=== PATIENT | female | born 1970 | race Caucasian/White ===

== ENCOUNTER → 2020-04-21 16:00 | Outpatient (BNVA) | payer BC, SELFPAY | PROVIDERS: Family Provider General Practice; PCP Nurse Practitioner; Visit Provider Obstetrics & Gynecology | DX: Z12.4 Encounter for screening for malignant neoplasm of cervix (principal); N95.1 Menopausal and female climacteric states | CPT/HCPCS: 88175 ==

== ENCOUNTER 2021-07-23 08:27 | Emergency (ER) | payer OTHER, SELFPAY ==
[2021-07-23 08:41] VITALS: BP 116/63; PULSE 58; RESP 18; TEMP 36.5; O2SAT 100; BMI 24.7
--- NOTE | 2021-07-23 08:58 | CT_ITS ---
WS: [id number] CT ABDOMEN AND PELVIS NONCONTRAST HISTORY: left flank pain TECHNIQUE: Imaging performed through the abdomen and pelvis. Coronal and sagittal reformats are submi tted. All CT scans at [facility] use at least one of these dose optimization techniques: auto mated exposure control; mA and/or kV adjustment per patient size (includes targeted exams where dose is matched to clinical indication); or iterative reconstruction. DLP: 947.9 mGy.cm COMPARISON: None available. Lower thorax: Lung bases are clear. Visualized heart is normal. No hiatal hernia. Liver: Normal size liver. No mass or bile duct dilatation. Gallbladder: Normal gallbladder. Pancreas: Normal size and attenuation. Normal pancreatic duct. No pancreatitis or mass. Spleen: Normal. Adrenal glands: Normal RIGHT adrenal gland. LEFT adrenal adenoma measures 12 x 14 mm. Right kidney: Normal size kidney. 2 mm nonobstructing calcification lower pole. No obstruction. No pe rinephric stranding. Left kidney: Normal size kidney with nonobstructing 2 to 3 mm calcifications in the lower pole. Very minimal inflammatory changes and stranding within the renal pelvis and ureter. There is a 3 mm calci fication either within the floor of the urinary bladder or in the distal ureter on the LEFT. Aorta: Normal abdominal aorta, no aneurysm or atherosclerosis. No free fluid, intraperitoneal air or significant lymphadenopathy. GI tract: Normal appendix. No GI tract obstruction or diverticulosis. Abdominal wall: Negative. No hernia. Pelvis: Normal. Osseous structures: Benign bone island in the LEFT femoral head. CT/CT kidney stone [id number] IMPRESSION: 1. 3 mm calcification either within the very distal LEFT ureter or extruded in to the dependent portion of the urinary bladder. Very minimal inflammatory martin ges in the LEFT renal pelvis and ureter. 2. Additional nonobstructing bilateral 2 to 3 mm renal calcifications.
--- NOTE | 2021-07-23 08:59 | ED_ITS ---
Documented by User: JUANITA Estevez 07/24/21 07:25 HPI - Abdominal Pain General: Chief Complaint: Abdominal Pain Stated Complaint: possible kidney stone Time Seen by Provider: 07/23/21 08:54 History of Present Illness: Patient is a 51-year-old female comes to the ED with left flank pain. Symptoms started this morning around 7:30 AM. She has never had a kidney stone before. She is having pain in her left flank. Pain rated a 10 out of 10. This morning she did have some pain and difficulty with urination. Endorses having nausea and threw up once this morning as well. Denies any fevers, chills, chest pain, bowel symptoms or hematuria. Associated Symptoms: Reports dysuria, nausea and vomiting; Denies chills, constipation, diarrhea, fever(s), hematochezia and hematuria Review of Systems Const: Denies: fever(s), chills or fatigue Eyes: Denies: change in vision or eye discomfort ENMT: Denies: throat pain, odynophagia, nasal discharge or nasal congestion Card: Denies: chest pain, palpitations, edema, swelling of feet/ankles, dyspnea on exertion or orthopnea Resp: Denies: dyspnea, productive cough or non-productive cough GI: Reports: nausea and vomiting; Denies: abdominal pain, diarrhea, constipation or hematochezia : Reports: flank pain (Left flank), difficulty voiding and dysuria; Denies: hematuria Musc: Denies: neck pain, back pain or extremity swelling Skin/Breast: Denies: rash or new lesions Neuro: Denies: headache(s), numbness in extremities or weakness in extremities PFSH ED PFSH: Medical History Palpitations Surgical History H/O section (01/30/06) With bilateral tubal ligation. Performed by Dr. Morales at [facility] [place] in [place], [place]. History of bilateral tubal ligation (01/30/06) Performed at time of section. Performed by Dr. Morales at [facility] [place] in [place], [place]. Family History Father Diabetes Other Clotting disorder Social History Smoking and tobacco status: never smoked Second hand smoke exposure: No Alcohol intake: never Physical Exam Narrative: EXAM NARRATIVE: Patient appears to be in pain and is uncomfortable. She is constantly moving around to get comfortable on exam bed during history and physical exam. Const: COMMON NORMALS: patient oriented x3 and alert GENERAL APPEARANCE: cooperative; not comfortable (Patient appears uncomfortable and in pain) HENMT: COMMON NORMALS: normocephalic HEAD & SCALP: normocephalic MOUTH: Normal oral and palatal mucosa present THROAT: posterior oropharynx normal an d uvula midline Neck/C-Spine: COMMON NORMALS: supple GENERAL: Yes normal visual inspection Resp: COMMON NORMALS: normal respiratory effort, No retractions, No use of accessory muscles and clear to auscultation bilaterally AUSCULTATION: clear to auscultation bilaterally Cardio: COMMON NORMALS: regular rate, regular rhythm, S1 normal heart sound present, S2 normal heart sound present, No gallops present (Cardio), No clicks present (Cardio), No murmurs present (Cardio) and Peripheral pulses 2+ throughout RATE: regular rate RHYTHM: regular rhythm HEART SOUNDS: S1 normal heart sound present and S2 normal heart sound present PERIPHERAL PULSES: Peripheral pulses 2+ throughout GI: COMMON NORMALS: Normal to inspection, nondistended, normoactive bowel sounds present, Soft to palpation, non-tender and no masses PALPATION: Yes Soft to palpation : BLADDER/KIDNEY EXAM: Yes CVA tenderness Back/Pelvis: GENERAL BACK: Yes CVA tenderness CVA tenderness: left Extremity: COMMON NORMALS: normal to inspection Neuro: COMMON NORMALS: patient oriented x3 SENSORIUM/ORIENTATION: Yes alert GAIT: Yes Normal gait present Skin: GENERAL SKIN EXAM: dry skin Course Vital Signs: Vital signs: Vital Signs Temperature 97.7 F 07/23/21 08:41 Pulse Rate 91 07/23/21 12:52 Respiratory Rate 20 H 07/23/21 09:22 Blood Pressure 112/66 07/23/21 12:52 Pulse Oximetry 98 07/23/21 12:52 MDM - Abdominal Pain Medical Decision Making Patient is a 51-year-old female who comes to the ED with left flank pain and dysuria. Vitals are stable. Patient does appear in some pain and has constantly changing positions and trying to get comfortable during history and physical exam. She does have some left CVA tenderness. CBC and CMP were unremarkable. UA showed some red blood cells and also some signs of infection as well. CT of abdomen pelvis showed an obstructing 3 mm stone in the distal left ureter. Patient's symptoms were controlled after she was given some IV morphine and Toradol. She was stable for discharge home. I placed an order with case management for patient referred to Dr. Kim. She was diagnosed with a kidney stone and sent home with a prescription for hydrocodone for pain, naproxen and Zofran. Return to ED precautions given. Patient was told to strain urine to collect stone. Patient understood and agree with plan. Lab Data I reviewed the patient's lab results. : 07/23/21 09:15 07/23/21 09:15 Labs/Radiology: Radiology Impressions Abdomen/Pelvis CT 07/23/21 08:58 IMPRESSION: 1. 3 mm calcification either within the very distal LEFT ureter or extruded into the dependent portion of the urinary bladder. Very minimal inflammatory changes in the LEFT renal pelvis and ureter. 2. Additional nonobstructing bilateral 2 to 3 mm renal calcifications. Laboratory Results WBC 9.4 10^3/uL (4.0-10.0) 07/23/21 09:15 RBC 4.25 10^6/uL (4.1-5.3) 07/23/21 09:15 Hgb 13.8 g/dL (11.5-15.3) 07/23/21 09:15 Hct 40.8 % (37.0-47.0) 07/23/21 09:15 MCV 96.0 fl (81-99) 07/23/21 09:15 MCH 32.5 pg (28.0-34.0) 07/23/21 09:15 MCHC 33.8 g/dL (30.0-36.0) 07/23/21 09:15 RDW 11.6 % (12.1-15.1) L 07/23/21 09:15 Plt Count 222 10^3/cmm (130-400) 07/23/21 09:15 MPV 9.0 fL (7.4-10.4) 07/23/21 09:15 Neut % (Auto) 85.4 % 07/23/21 09:15 Lymph % (Auto) 9.6 % 07/23/21 09:15 [place] % (Auto) 3.6 % 07/23/21 09:15 Eos % (Auto) 0.7 % 07/23/21 09:15 Baso % (Auto) 0.4 % 07/23/21 09:15 Neut # (Auto) 8.01 10^3/uL (1.8-7.7) H 07/23/21 09:15 Lymph # (Auto) 0.9 10^3/uL (0.8-4.8) 07/23/21 09:15 [place] # (Auto) 0.3 10^3/uL (0.2-0.9) 07/23/21 09:15 Eos # (Auto) 0.1 10^3/uL (0.0-0.8) 07/23/21 09:15 Baso # (Auto) 0.0 10^3/uL (0.0-0.1) 07/23/21 09:15 Nucleated RBC % (auto) 0 % 07/23/21 09:15 Nucleated RBCs # 0.0 /100WBC 07/23/21 09:15 Sodium 140 mmol/L (136-145) 07/23/21 09:15 Potassium 4.2 mmol/L (3.5-5.1) 07/23/21 09:15 Chloride 103 mmol/L (98-107) 07/23/21 09:15 Carbon Dioxide 27 mmol/L (22-29) 07/23/21 09:15 Anion Gap 14.2 (5-19) 07/23/21 09:15 BUN 16 mg/dL (6-20) 07/23/21 09:15 Creatinine 0.7 mg/dL (0.5-0.9) 07/23/21 09:15 GFR Calculation 87.9 mL/min (90-130) L 07/23/21 09:15 Glucose 119 mg/dL (65-115) H 07/23/21 09:15 Calculated Osmolality 292 mOsm/kg (285-295) 07/23/21 09:15 Calcium 8.9 mg/dL (8.5-10.5) 07/23/21 09:15 Total Bilirubin 0.3 mg/dL (0.15-1.2) 07/23/21 09:15 AST 17 U/L (0-32) 07/23/21 09:15 ALT 11 U/L (0-33) 07/23/21 09:15 Alkaline Phosphatase 76 IU/L (35-105) 07/23/21 09:15 Total Protein 6.2 g/dL (6.6-8.7) L 07/23/21 09:15 Albumin 4.3 g/dL (3.5-5.2) 07/23/21 09:15 Globulin 1.9 g/dL (1.3-4.6) 07/23/21 09:15 Lipase 25 U/L (13-60) 07/23/21 09:15 Urine Color Yellow (Yellow) 07/23/21 11:09 Urine Appearance Turbid (CLEAR) 07/23/21 11:09 Urine pH 7 (5-7) 07/23/21 11:09 Ur Specific [place] 1.010 (1.005-1.030) 07/23/21 11:09 Urine Protein Neg (Negative) 07/23/21 11:09 Urine Glucose (UA) Norm (Normal) 07/23/21 11:09 Urine Ketones 1+ (Negative) H 07/23/21 11:09 Urine Blood 2+ (Negative) H 07/23/21 11:09 Urine Nitrate Positive (Negative) H 07/23/21 11:09 Urine Bilirubin Neg (Negative) 07/23/21 11:09 Urine Urobilinogen Norm mg/dL (Negative) 07/23/21 11:09 Ur Leukocyte Esterase 2+ (Negative) H 07/23/21 11:09 Urine RBC 0-4 /hpf (0-2) H 07/23/21 11:09 Urine WBC 25-40 /hpf (0-5) H 07/23/21 11:09 Ur Squamous Epith Cells 5-10 /hpf (0-5) H 07/23/21 11:09 Amorphous Sediment Not Reportable 07/23/21 11:09 Urine Bacteria 4+ /hpf (NONE) H 07/23/21 11:09 Discharge Plan Discharge Patient Disposition: Home Clinical Impression: Kidney stone UTI (urinary tract infection) Qualifiers: Urinary tract infection type: acute cystitis Hematuria presence: with hematuria Qualified Code(s): N30.01 - Acute cystitis with hematuria Condition: Stable Prescriptions: New Naprosyn 500 mg tablet 500 mg PO BID PRN (Reason: pain) Qty: 20 0RF ondansetron 4 mg tablet,disintegrating 4 mg PO Q8H PRN (Reason: nausea and vomiting) Qty: 10 0RF Bactrim DS 800-160 mg tablet 1 tab PO BID 7 Days Qty: 14 0RF No Action multivitamin Tablet 1 tab PO DAILY 0RF Discharge Orders: Discharge ED (Routine); Ordered 07/23/21 Ordered By: Elvis Dempsey Discharge Diet: Regular Discharge Activity: Increase activity as tolerated Patient Instructions: Kidney Stones (ED), How to Strain Your Urine (ED), Opioid Safety Activity Restrictions/Additional Instructions: Follow-up with medical provider as directed. Case management should be contacting you in the next several days to set up an appointment with Dr. Kim the urologist. Strain urine to catch stone and drink lots of fluid to stay hydrated and help pass stone. Take medications as prescribed. You can take ibuprofen or Aleve for any pain or fevers. Return to the ER or your medical provider if condition worsens. Please read and understand discharge instructions. If any questions, please ask. Coding Level of Care Code ED Speech Pathology Assistant for Chg Fwd Exam Comprehensive Documented by User: Nadeem Hester DO 07/24/21 07:46 HPI - Abdominal Pain General: Chief Complaint: Abdominal Pain Stated Complaint: possible kidney stone Time Seen by Provider: 07/23/21 08:54 [facility] ED PFSH: Medical History Palpitations Surgical History H/O section (01/30/06) With bilateral tubal ligation. Performed by Dr. Morales at [facility] [place] in [place], [place]. History of bilateral tubal ligation (01/30/06) Performed at time of section. Performed by Dr. Morales at [facility] [place] in [place], [place]. Family History Father Diabetes Other Clotting disorder Social History Smoking and tobacco status: never smoked Second hand smoke exposure: No Alcohol intake: never Course Vital Signs: Vital signs: Vital Signs Temperature 97.7 F 07/23/21 08:41 Pulse Rate 91 07/23/21 12:52 Respiratory Rate 20 H 07/23/21 09:22 Blood Pressure 112/66 07/23/21 12:52 Pulse Oximetry 98 07/23/21 12:52 MDM - Abdominal Pain Medical Decision Making Patient is a 51-year-old female who comes to the ED with left flank pain and dysuria. Vitals are stable. Patient does appear in some pain and has constantly changing positions and trying to get comfortable during history and physical exam. She does have some left CVA tenderness. CBC and CMP were unremarkable. UA showed some red blood cells and also some signs of infection as well. CT of abdomen pelvis showed an obstructing 3 mm stone in the distal left ureter. Patient's symptoms were controlled after she was given some IV morphine and Toradol. She was stable for discharge home. I placed an order with case management for patient referred to Dr. Kim. She was diagnosed with a kidney stone and sent home with a prescription for hydrocodone for pain, naproxen and Zofran. Return to ED precautions given. Patient was told to strain urine to collect stone. Patient understood and agree with plan. Chart reviewed and patient discussed with midlevel. Agree with assessment and plan. Lab Data : 07/23/21 09:15 07/23/21 09:15 Labs/Radiology: Radiology Impressions Abdomen/Pelvis CT 07/23/21 08:58 IMPRESSION: 1. 3 mm calcification either within the very distal LEFT ureter or extruded into the dependent portion of the urinary bladder. Very minimal inflammatory changes in the LEFT renal pelvis and ureter. 2. Additional nonobstructing bilateral 2 to 3 mm renal calcifications. Laboratory Results WBC 9.4 10^3/uL (4.0-10.0) 07/23/21 09:15 RBC 4.25 10^6/uL (4.1-5.3) 07/23/21 09:15 Hgb 13.8 g/dL (11.5-15.3) 07/23/21 09:15 Hct 40.8 % (37.0-47.0) 07/23/21 09:15 MCV 96.0 fl (81-99) 07/23/21 09:15 MCH 32.5 pg (28.0-34.0) 07/23/21 09:15 MCHC 33.8 g/dL (30.0-36.0) 07/23/21 09:15 RDW 11.6 % (12.1-15.1) L 07/23/21 09:15 Plt Count 222 10^3/cmm (130-400) 07/23/21 09:15 MPV 9.0 fL (7.4-10.4) 07/23/21 09:15 Neut % (Auto) 85.4 % 07/23/21 09:15 Lymph % (Auto) 9.6 % 07/23/21 09:15 [place] % (Auto) 3.6 % 07/23/21 09:15 Eos % (Auto) 0.7 % 07/23/21 09:15 Baso % (Auto) 0.4 % 07/23/21 09:15 Neut # (Auto) 8.01 10^3/uL (1.8-7.7) H 07/23/21 09:15 Lymph # (Auto) 0.9 10^3/uL (0.8-4.8) 07/23/21 09:15 [place] # (Auto) 0.3 10^3/uL (0.2-0.9) 07/23/21 09:15 Eos # (Auto) 0.1 10^3/uL (0.0-0.8) 07/23/21 09:15 Baso # (Auto) 0.0 10^3/uL (0.0-0.1) 07/23/21 09:15 Nucleated RBC % (auto) 0 % 07/23/21 09:15 Nucleated RBCs # 0.0 /100WBC 07/23/21 09:15 Sodium 140 mmol/L (136-145) 07/23/21 09:15 Potassium 4.2 mmol/L (3.5-5.1) 07/23/21 09:15 Chloride 103 mmol/L (98-107) 07/23/21 09:15 Carbon Dioxide 27 mmol/L (22-29) 07/23/21 09:15 Anion Gap 14.2 (5-19) 07/23/21 09:15 BUN 16 mg/dL (6-20) 07/23/21 09:15 Creatinine 0.7 mg/dL (0.5-0.9) 07/23/21 09:15 GFR Calculation 87.9 mL/min (90-130) L 07/23/21 09:15 Glucose 119 mg/dL (65-115) H 07/23/21 09:15 Calculated Osmolality 292 mOsm/kg (285-295) 07/23/21 09:15 Calcium 8.9 mg/dL (8.5-10.5) 07/23/21 09:15 Total Bilirubin 0.3 mg/dL (0.15-1.2) 07/23/21 09:15 AST 17 U/L (0-32) 07/23/21 09:15 ALT 11 U/L (0-33) 07/23/21 09:15 Alkaline Phosphatase 76 IU/L (35-105) 07/23/21 09:15 Total Protein 6.2 g/dL (6.6-8.7) L 07/23/21 09:15 Albumin 4.3 g/dL (3.5-5.2) 07/23/21 09:15 Globulin 1.9 g/dL (1.3-4.6) 07/23/21 09:15 Lipase 25 U/L (13-60) 07/23/21 09:15 Urine Color Yellow (Yellow) 07/23/21 11:09 Urine Appearance Turbid (CLEAR) 07/23/21 11:09 Urine pH 7 (5-7) 07/23/21 11:09 Ur Specific [place] 1.010 (1.005-1.030) 07/23/21 11:09 Urine Protein Neg (Negative) 07/23/21 11:09 Urine Glucose (UA) Norm (Normal) 07/23/21 11:09 Urine Ketones 1+ (Negative) H 07/23/21 11:09 Urine Blood 2+ (Negative) H 07/23/21 11:09 Urine Nitrate Positive (Negative) H 07/23/21 11:09 Urine Bilirubin Neg (Negative) 07/23/21 11:09 Urine Urobilinogen Norm mg/dL (Negative) 07/23/21 11:09 Ur Leukocyte Esterase 2+ (Negative) H 07/23/21 11:09 Urine RBC 0-4 /hpf (0-2) H 07/23/21 11:09 Urine WBC 25-40 /hpf (0-5) H 07/23/21 11:09 Ur Squamous Epith Cells 5-10 /hpf (0-5) H 07/23/21 11:09 Amorphous Sediment Not Reportable 07/23/21 11:09 Urine Bacteria 4+ /hpf (NONE) H 07/23/21 11:09 Discharge Plan Discharge Patient Disposition: Home Clinical Impression: Kidney stone UTI (urinary tract infection) Qualifiers: Urinary tract infection type: acute cystitis Hematuria presence: with hematuria Qualified Code(s): N30.01 - Acute cystitis with hematuria Condition: Stable Prescriptions: New Naprosyn 500 mg tablet 500 mg PO BID PRN (Reason: pain) Qty: 20 0RF ondansetron 4 mg tablet,disintegrating 4 mg PO Q8H PRN (Reason: nausea and vomiting) Qty: 10 0RF Bactrim DS 800-160 mg tablet 1 tab PO BID 7 Days Qty: 14 0RF No Action multivitamin Tablet 1 tab PO DAILY 0RF Discharge Orders: Discharge ED (Routine); Ordered 07/23/21 Ordered By: Elvis Dempsey Discharge Diet: Regular Discharge Activity: Increase activity as tolerated Patient Instructions: Kidney Stones (ED), How to Strain Your Urine (ED), Opioid Safety Activity Restrictions/Additional Instructions: Follow-up with medical provider as directed. Case management should be contacting you in the next several days to set up an appointment with Dr. Kim the urologist. Strain urine to catch stone and drink lots of fluid to stay hydrated and help pass stone. Take medications as prescribed. You can take ibuprofen or Aleve for any pain or fevers. Return to the ER or your medical provider if condition worsens. Please read and understand discharge instructions. If any questions, please ask. Coding Level of Care Code ED Speech Pathology Assistant for Pattie Fwd Exam Comprehensive
[2021-07-23 09:22] VITALS: RESP 20
[2021-07-23] MEDS: morphine 4 mg/mL SDV 1 mL IVP (09:22)
[2021-07-23] MEDS: sodium chloride 0.9% 500 ML 999 ML IV (09:22)
[2021-07-23] MEDS: ondansetron 2 mg/ML SDV 2 mL 4 MG IVP (09:22)
[2021-07-23 09:29] LABS: Basophils % 0.4 %; Eosinophils # 0.1 10^3/uL (0.0-0.8); Eosinophils % 0.7 %; Hematocrit 40.8 % (37.0-47.0); Hemoglobin 13.8 g/dL (11.5-15.3); Lymphocytes # 0.9 10^3/uL (0.8-4.8); Lymphocytes % 9.6 %; Mean Corpuscular HGB Conc 33.8 g/dL (30.0-36.0); Mean Corpuscular Hemoglobin 32.5 pg (28.0-34.0); Monocytes # 0.3 10^3/uL (0.2-0.9); Monocytes % 3.6 %; Neutrophils # 8.01 10^3/uL (1.8-7.7); Neutrophils % 85.4 %; Nucleated Red Blood Cells % 0 %; Platelet Count 222 10^3/cmm (130-400); Red Blood Count 4.25 10^6/uL (4.1-5.3); Red Cell Distribution Width 11.6 % (12.1-15.1); White Blood Count 9.4 10^3/uL (4.0-10.0)
[2021-07-23 09:51] LABS: Alanine Aminotransferase 11 U/L (0-33); Albumin Level 4.3 g/dL (3.5-5.2); Alkaline Phosphatase 76 IU/L (35-105); Blood Urea Nitrogen 16 mg/dL (6-20); Calcium 8.9 mg/dL (8.5-10.5); Carbon Dioxide 27 mmol/L (22-29); Chloride 103 mmol/L (98-107); Globulin 1.9 g/dL (1.3-4.6); Glomerular Filtration Rate 87.9 mL/min (90-130); Glucose 119 mg/dL (65-115); Lipase 25 U/L (13-60); Osmolality Calculated 292 mOsm/kg (285-295); Sodium 140 mmol/L (136-145); Total Bilirubin 0.3 mg/dL (0.15-1.2); Total Protein 6.2 g/dL (6.6-8.7)
[2021-07-23 09:52] LABS: Anion Gap 14.2 (5-19); Aspartate Amino Transferase 17 U/L (0-32); Potassium 4.2 mmol/L (3.5-5.1)
[2021-07-23] MEDS: ketorolac 30 mg/mL INJ IVP (11:10)
[2021-07-23 12:10] LABS: Add Urine Culture? Yes; Add Urine Microscopic? YES; Bacteria Urine 4+ /hpf; Bilirubin Urine Neg (Negative); Blood Urine 2+ (Negative); Glucose Urine UA Norm (Normal); Ketones Urine 1+ (Negative); Leukocyte Esterase Urine 2+ (Negative); Nitrate Urine Positive (Negative); Protein Urine Neg (Negative); RBC Urine 0-4 /hpf (0-2); Urine Appearance Turbid (CLEAR); Urine Color Yellow (Yellow); Urobilinogen Urine Norm (Negative); WBC Urine 25-40 /hpf (0-5); pH Urine 7 (5-7)
[2021-07-23 12:52] VITALS: BP 112/66; PULSE 91; O2SAT 98
--- NOTE | 2021-07-23 15:02 | DCPLANNER ---
Addendum entered by Yazmin Crawford 07/24/21 09:20: Patient had a follow up appointment scheduled for 07.24.[address] Kim - patient did attend appointment. Original Note: integrated campaign manager had message to schedule a follow up appointment for patient with urology. integrated campaign manager sent patients information to the front office staff at urology. Patients information will be printed and reviewed. Clinic will call patient with appointment information.
== END 2021-07-23 12:54 | disposition home or self-care (01) ==
PROVIDERS: Emergency Provider Physician Assistant
DX: N20.2 Calculus of kidney with calculus of ureter (principal); N30.01 Acute cystitis with hematuria
CPT/HCPCS: 74176; 80053; 81001; 83690; 85025; 87077; 87086; 87186; 96361; 96374; 96375; 99283; J1885; J2270; J2405; J7040

== ENCOUNTER 2021-07-24 08:59 | Outpatient (CLI) | payer OTHER, SELFPAY ==
--- NOTE | 2021-07-24 09:26 | XR_ITS ---
WS: [id number] KUB, AP view, 07/24/2021 Clinical Data: KIDNEY STONE Comparison: None. Findings: No abnormal intraabdominal masses or calcifications are seen. There is no dilatated small bowel or ev idence of obstruction. Fecal material and bowel gas obscure detail over both kidneys. There is a moderate amount of fecal material in the colon. There are phleboliths in the true pelvis. XR/XR KUB [id number] Impression: Negative KUB.
== END 2021-07-24 09:00 | disposition home or self-care (01) ==
PROVIDERS: Visit Provider Urology
DX: N20.0 Calculus of kidney (principal)
CPT/HCPCS: 74018; 81003

== ENCOUNTER → 2022-07-22 11:18 | Outpatient (BNVA) | payer OTHER, SELFPAY | PROVIDERS: Visit Provider Obstetrics & Gynecology | DX: Z01.419 Encounter for gynecological examination (general) (routine) without abnormal findings (principal) | CPT/HCPCS: 80053; 84315; 84443; 85025; 87077; 87086; 87184 ==

== ENCOUNTER → 2022-08-05 08:29 | Outpatient (BNVA) | payer OTHER, SELFPAY | PROVIDERS: Visit Provider Obstetrics & Gynecology | DX: N93.9 Abnormal uterine and vaginal bleeding, unspecified (principal) | CPT/HCPCS: 76830 ==

== ENCOUNTER → 2022-10-08 15:30 | Outpatient (BNVA) | payer SELFPAY | PROVIDERS: Visit Provider Obstetrics & Gynecology | DX: N39.0 Urinary tract infection, site not specified (principal) | CPT/HCPCS: 81000 ==

== ENCOUNTER → 2022-12-25 16:20 | Outpatient (BNVA) | payer SELFPAY | PROVIDERS: Visit Provider Obstetrics & Gynecology | DX: N39.0 Urinary tract infection, site not specified (principal) | CPT/HCPCS: 81000; 87086 ==

== ENCOUNTER 2023-04-24 14:00 | Emergency (ER) | payer OTHER, SELFPAY ==
[2023-04-24 14:04] VITALS: BP 129/80; PULSE 88; RESP 16; TEMP 36.6; O2SAT 99
[2023-04-24 14:45] LABS: Basophils % 0.4 %; Eosinophils % 0.9 %; Hematocrit 41.4 % (36-47); Lymphocytes # 0.9 10^3/uL (0.8-4.8); Lymphocytes % 19.7 %; Mean Corpuscular HGB Conc 33.6 g/dL (30-55); Mean Corpuscular Hemoglobin 32.3 pg (27-33); Mean Corpuscular Volume 96.1 fl (85-98); Mean Platelet Volume 8.7 fL (7.4-10.4); Monocytes # 0.3 10^3/uL (0.2-0.9); Monocytes % 6.7 %; Neutrophils # 3.22 10^3/uL (1.8-7.7); Neutrophils % 72.1 %; Nucleated Red Blood Cells % 0 %; Platelet Count 230 10^3/cmm (157-399); Red Blood Count 4.31 10^6/uL (3.85-5.65); Red Cell Distribution Width 11.7 % (12.1-15.1); White Blood Count 4.47 10^3/uL (3.29-11.43)
[2023-04-24 15:06] LABS: Alanine Aminotransferase 9 U/L (0-33); Albumin Level 4.3 g/dL (3.5-5.2); Alkaline Phosphatase 67 U/L (35-105); Anion Gap 14.8 (5-19); Aspartate Amino Transferase 12 U/L (0-32); Blood Urea Nitrogen 20 mg/dL (6-20); Calcium 9.7 mg/dL (8.5-10.5); Carbon Dioxide 27 mmol/L (22-29); Chloride 103 mmol/L (98-107); Globulin 2.3 g/dL (1.3-4.6); Glomerular Filtration Rate 104.2 mL/min (90-130); Glucose 113 mg/dL (65-115); Lipase 37 U/L (13-60); Osmolality Calculated 295 mOsm/kg (285-295); Potassium 3.8 mmol/L (3.5-5.1); Sodium 141 mmol/L (136-145); Total Bilirubin 0.3 mg/dL (0.15-1.2); Total Protein 6.6 g/dL (6.6-8.7)
--- NOTE | 2023-04-24 15:19 | CTR_ITS ---
PROCEDURE INFORMATION: Exam: CT Abdomen And Pelvis With Contrast Exam date and time: 04/24/2023 3:53 PM Age: 53 years old Clinical indication: Abdominal pain; Localized; Left lower quadrant (llq); Prior surgery; Surgery date: 6+ months; Surgery type: Tubal, ; Additional info: Llq pain TECHNIQUE: Imaging protocol: Computed tomography of the abdomen and pelvis with contrast. Radiation optimization: All CT scans at this facility use at least one of these dose optimization techniques: automated exposure control; mA and/or kV adjustment per patient size (includes targeted exams where dose is matched to clinical indication); or iterative reconstruction. Contrast material: OMNI 350; Contrast volume: 100 ml; Contrast route: INTRAVENOUS (IV); COMPARISON: CT kidney stone [id number] 07/23/2021 10:06 AM RADIATION DOSE METRICS: Total DLP (mGy-cm): 462 FINDINGS: Liver: Unchanged tiny left hepatic hypodensity. Gallbladder and bile ducts: No acute findings. Pancreas: No ductal dilation. Spleen: No splenomegaly. Adrenal glands: Unchanged left adrenal adenoma measuring 13 mm. Kidneys and ureters: No stones or hydronephrosis. Stomach and bowel: No obstruction. Appendix: No evidence of appendicitis. Intraperitoneal space: No free air. No significant fluid collection. Vasculature: No abdominal aortic aneurysm. Lymph nodes: No enlarged lymph nodes. Urinary bladder: Incompletely distended. Reproductive: No acute findings. Bones/joints: No acute findings. Soft tissues: No acute findings. CT/CT abdomen pelvis w con* [id number] IMPRESSION: No acute findings.
--- NOTE | 2023-04-24 15:20 | ED_ITS ---
HPI - Abdominal Pain 2 General: Chief Complaint: Abdominal Pain Stated Complaint: abd pain, kidney pain Time Seen by Provider: 04/24/23 15:03 Source: patient Mode of arrival: ambulatory Limitations: no limitations History of Present Illness: 53-year-old female states over the last week she been having some left lower quadrant pain states the pains been cramping in nature she does have some tenderness to touch she denies any fevers denies any vomiting or diarrhea states the pain waxes and wanes currently 3 out of 10 Associated Symptoms: Denies chills, diarrhea, fever(s), nausea and vomiting Review of Systems 2 Const: Denies: fever(s), chills, body aches or change in appetite ENMT: Denies: throat pain or dental pain Card: Denies: chest pain Resp: Denies: dyspnea GI: Reports: abdominal pain; Denies: nausea, vomiting or diarrhea Musc: Denies: neck pain or back pain Skin/Breast: Denies: rash Neuro: Denies: headache(s) PFSH ED 2 PFSH: Medical History Palpitations Surgical History History of bilateral tubal ligation (01/30/06) Performed at time of section. [place] [facility] [place]/O section (01/30/06) With bilateral tubal ligation. [place] [facility] [place]. Family History Father Diabetes Mother , AT AGE 24 MVA (motor vehicle accident) Other Clotting disorder Denies family history of Colon cancer Ovarian cancer Heart disease Breast cancer Hypertension Uterine cancer Thyroid disease Stroke Social History Smoking and tobacco/nicotine status: never used tobacco/nicotine Second hand smoke exposure: No Alcohol intake: never Substance/Drug Use: never Marital status: Current occupational status: employed Physical Exam 2 Const: COMMON NORMALS: no acute distress, patient oriented x3 and healthy appearing HENMT: COMMON NORMALS: normocephalic and atraumatic HEAD & SCALP: n ormocephalic and atraumatic Neck/C-Spine: COMMON NORMALS: full ROM and supple Chest: COMMONS NORMALS: normal inspection of the chest Resp: COMMON NORMALS: normal respiratory effort Cardio: COMMON NORMALS: regular rate, regular rhythm and No murmurs present (Cardio) RATE: regular rate RHYTHM: regular rhythm GI: COMMON NORMALS: Normal to inspection, nondistended, normoactive bowel sounds present, Soft to palpation and no masses PALPATION: Yes Soft to palpation and Yes Tenderness to palpation present (GI) Details: LLQ Extremity: COMMON NORMALS: normal to inspection and full ROM Neuro: COMMON NORMALS: patient oriented x3, moves all extremities and no focal motor deficits Psych: COMMON NORMALS: mental status grossly normal, Normal thought process present and cooperative THOUGHT PROCESS: Normal thought process present Skin: COMMON NORMALS: no rashes or lesions noted and no wounds GENERAL SKIN EXAM: no rashes or lesions noted Course 2 Vital Signs: Vital signs: Vital Signs Temperature 97.9 F 04/24/23 14:04 Pulse Rate 88 04/24/23 14:04 Respiratory Rate 17 04/24/23 15:29 Blood Pressure 129/80 04/24/23 14:04 Pulse Oximetry 97 04/24/23 15:29 Oxygen Delivery Me thod Room Air 04/24/23 14:04 MDM - Abdominal Pain Medical Decision Making Patient presents with left lower abdominal pain CT blood work here is all normal no signs of UTI she is stable for discharge we will start her on dicyclomine she is follow-up with PCP and return if worsening. Medical Records I reviewed the patient's medical records. Lab Data I reviewed the patient's lab results. 04/24/23 14:29 04/24/23 14:29 Labs/Radiology: Radiology Impressions Abdomen/Pelvis CT 04/24/23 15:19 IMPRESSION: No acute findings. Laboratory Results WBC 4.47 10^3/uL (3.29-11.43) 04/24/23 14:29 RBC 4.31 10^6/uL (3.85-5.65) 04/24/23 14:29 Hgb 13.90 g/dL (11.27-16.99) 04/24/23 14:29 Hct 41.4 % (36-47) 04/24/23 14: MCV 96.1 fl (85-98) 04/24/23 14:29 MCH 32.3 pg (27-33) 04/24/23 14: MCHC 33.6 g/dL (30-55) 04/24/23 14: RDW 11.7 % (12.1-15.1) L 04/24/23 14: Plt Count 230 10^3/cmm (157-399) 04/24/23 14: MPV 8.7 fL (7.4-10.4) 04/24/23 14: Neut % (Auto) 72.1 % 04/24/23 14: Lymph % (Auto) 19.7 % 04/24/23 14: [place] % (Auto) 6.7 % 04/24/23 14: Eos % (Auto) 0.9 % 04/24/23 14: Baso % (Auto) 0.4 % 04/24/23 14: Neut # (Auto) 3.22 10^3/uL (1.8-7.7) 04/24/23 14: Lymph # (Auto) 0.9 10^3/uL (0.8-4.8) 04/24/23 14:29 [place] # (Auto) 0.3 10^3/uL (0.2-0.9) 04/24/23 14: Eos # (Auto) 0.0 10^3/uL (0.0-0.8) 04/24/23 14: Baso # (Auto) 0.0 10^3/uL (0.0-0.1) 04/24/23 14: Nucleated RBC % (auto) 0 % 04/24/23 14: Nucleated RBCs # 0.0 /100WBC 04/24/23 14:29 Sodium 141 mmol/L (136-145) 04/24/23 14:29 Potassium 3.8 mmol/L (3.5-5.1) 04/24/23 14: Chloride 103 mmol/L (98-107) 04/24/23 14:29 Carbon Dioxide 27 mmol/L (22-29) 04/24/23 14:29 Anion Gap 14.8 (5-19) 04/24/23 14:29 BUN 20 mg/dL (6-20) 04/24/23 14:29 Creatinine 0.6 mg/dL (0.5-0.9) 04/24/23 14:29 GFR Calculation 104.2 mL/min (90-130) 04/24/23 14:29 Glucose 113 mg/dL (65-115) 04/24/23 14:29 Calculated Osmolality 295 mOsm/kg (285-295) 04/24/23 14:29 Calcium 9.7 mg/dL (8.5-10.5) 04/24/23 14:29 Total Bilirubin 0.3 mg/dL (0.15-1.2) 04/24/23 14:29 AST 12 U/L (0-32) 04/24/23 14:29 ALT 9 U/L (0-33) 04/24/23 14:29 Alkaline Phosphatase 67 U/L (35-105) 04/24/23 14:29 Total Protein 6.6 g/dL (6.6-8.7) 04/24/23 14: Albumin 4.3 g/dL (3.5-5.2) 04/24/23 14:29 Globulin 2.3 g/dL (1.3-4.6) 04/24/23 14:29 Lipase 37 U/L (13-60) 04/24/23 14:29 Urine Color Straw (Yellow) 04/24/23 14:08 Urine Appearance Clear (CLEAR) 04/24/23 14:08 Urine pH 7 (5-7) 04/24/23 14:08 Ur Specific [place] 1.005 (1.005-1.030) 04/24/23 14:08 Urine Protein Neg (Negative) 04/24/23 14:08 Urine Glucose (UA) Norm (Normal) 04/24/23 14:08 Urine Ketones Negative (Negative) 04/24/23 14:08 Urine Blood Neg (Negative) 04/24/23 14:08 Urine Nitrate Negative (Negative) 04/24/23 14:08 Urine Bilirubin Neg (Negative) 04/24/23 14:08 Urine Urobilinogen Norm mg/dL (Negative) 04/24/23 14:08 Ur Leukocyte Esterase Negative (Negative) 04/24/23 14:08 All radiology interpretation(s) finalized by discharge Discharge Plan Discharge Patient Disposition: Home Clinical Impression: Abdominal pain Qualifiers: Abdominal location: generalized Qualified Code(s): R10.84 - Generalized abdominal pain Condition: Stable Prescriptions: New dicyclomine 20 mg tablet 20 mg PO TID PRN (Reason: abdominal pain) Qty: 20 0RF ondansetron 4 mg tablet,disintegrating 4 mg PO Q6H PRN (Reason: nausea and vomiting) Qty: 14 0RF No Action acetaminophen 325 mg capsule 325 mg PO QID PRN (Reason: Pain) Discharge Orders: Discharge ED (Routine); Ordered 04/24/23 Ordered By: Raeann Cassidy Referrals: Kenroy Miguel MD [Primary Care Provider] - Discharge Diet: Advance as tolerated Discharge Activity: Resume usual activity Patient Instructions: Abdominal Pain (ED) Coding Level of Care Code ED System Specialist for Pattie Feliciano
[2023-04-24 15:29] VITALS: RESP 17; O2SAT 97
[2023-04-24] MEDS: morphine 4 mg/mL SDV 1 mL IVP (15:29)
[2023-04-24] MEDS: ondansetron 2 mg/ML SDV 2 mL 4 MG IVP (15:30)
[2023-04-24 15:45] LABS: Add Urine Microscopic? NO; Charge for UA Resulting for Rev
[2023-04-24] MEDS: iohexol 350 mg/mL 500 mL Btl (per mL) IV (15:56)
[2023-04-24 16:02] LABS: Bilirubin Urine Neg (Negative); Blood Urine Neg (Negative); Glucose Urine UA Norm (Normal); Ketones Urine Negative (Negative); Leukocyte Esterase Urine Negative (Negative); Nitrate Urine Negative (Negative); Protein Urine Neg (Negative); Specific Gravity, Urine 1.005 (1.005-1.030); Urine Appearance Clear (CLEAR); Urine Color Straw (Yellow); Urobilinogen Urine Norm (Negative); pH Urine 7 (5-7)
== END 2023-04-24 16:35 | disposition home or self-care (01) ==
PROVIDERS: Emergency Provider Emergency Medicine; PCP Obstetrics & Gynecology
DX: R10.84 Generalized abdominal pain (principal)
CPT/HCPCS: 36415; 74177; 80053; 81003; 83690; 85025; 96374; 96375; 99285; J2270; J2405; Q9967

== ENCOUNTER → 2023-07-12 16:48 | Outpatient (BNVA) | payer OTHER, SELFPAY | PROVIDERS: PCP Obstetrics & Gynecology; Visit Provider Registered Nurse Neonatal Intensive Care | DX: R30.0 Dysuria (principal); N39.0 Urinary tract infection, site not specified | CPT/HCPCS: 81000; 87086 ==

== ENCOUNTER → 2023-07-28 12:32 | Outpatient (BNVA) | payer OTHER, SELFPAY | PROVIDERS: PCP Obstetrics & Gynecology; Visit Provider Nurse Practitioner Family | DX: R30.0 Dysuria | CPT/HCPCS: 81001 ==

== ENCOUNTER → 2023-09-25 14:28 | Outpatient (BNVA) | payer OTHER, SELFPAY | PROVIDERS: PCP Obstetrics & Gynecology; Visit Provider Family Medicine | DX: R39.9 Unspecified symptoms and signs involving the genitourinary system (principal); R52 Pain, unspecified; R10.12 Left upper quadrant pain | CPT/HCPCS: 81000 ==

== ENCOUNTER 2023-10-02 03:59 | Emergency (ER) | payer OTHER, SELFPAY ==
[2023-10-02 04:03] VITALS: BP 137/52; PULSE 74; RESP 16; TEMP 35.7; O2SAT 98; BMI 26.2
[2023-10-02 04:15] VITALS: PULSE 74; O2SAT 99
--- NOTE | 2023-10-02 04:17 | W.ED.ABDPA2 ---
Documented by User: Daniel Nunn DO 10/02/23 04:52 HPI - Abdominal Pain General: Chief Complaint: Abdominal Pain Stated Complaint: Lower abd pain Time Seen by Provider: 10/02/23 04:04 History of Present Illness: Patient presents to the ER with complaints of left lower quadrant abdominal pain nausea and diarrhea. 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 Patient is on nitro for Antwine daily for UTI prevention, she is on Flexeril most recent for this pain. Patient has been on Bentyl in the past which did seem to help. Patient saw Dr. Thompson in urgent care on 09/25/2023, Dr. Miguel on 08/04/2023, same evidence 07/28/2023, Ivelisse Perdomo 07/12/2023, Olga Stephenson 06/02/2023, Dr. Cassidy ER April 24, 2023, patient had negative CT scan of the abdomen pelvis on April 24, 2023, Review of Systems General: Reports: 10 or more systems reviewed and unremarkable except in HPI and below PFSH ED PFSH: Medical History Palpitations Surgical History History of bilateral tubal ligation (01/30/06) Performed at time of section. Performed [place] Dr. Morales at [facility] [place], [place]. H/O section (01/30/06) With bilateral tubal ligation. Performed by Dr. Morales at [facility] [place], [place]. Family History Father Diabetes Mother , AT AGE 24 No problems noted. Denies family history of Colon cancer Ovarian cancer Prostate cancer Heart disease Hypercholesteremia Breast cancer Hypertension Uterine cancer Thyroid disease Stroke Social History Smoking and tobacco/nicotine status: unknown if used tobacco/nicotine Second hand smoke exposure: No Alcohol intake: never Substance/Drug Use: never Physical Exam Const: COMMON NORMALS: no acute distress, average body habitus, patient oriented x3, no limitations, healthy appearing, alert and well nourished Neck/C-Spine: COMMON NORMALS: no JVD Chest: COMMONS NORMALS: normal inspection of the chest and normal palpation of entire chest wall Resp: COMMON NORMALS: normal respiratory effort, No retractions, No use of accessory muscles and clear to auscultation bilaterally AUSCULTATION: clear to auscultation bilaterally Cardio: COMMON NORMALS: no JVD, regular rate, regular rhythm, S1 normal heart sound present, S2 normal heart sound present, No gallops present (Cardio), No clicks present (Cardio), No murmurs present (Cardio) and No rub (Cardio) RATE: regular rate RHYTHM: regular rhythm HEART SOUNDS: S1 normal heart sound present and S2 normal heart sound present GI: COMMON NORMALS: Normal to inspection, nondistended, normoactive bowel sounds present, Soft to palpation, No hepatosplenomegaly present and no masses; negative for non-tender (Mild tender to palpation left lower quadrant and left low flank) PALPATION: Yes Soft to palpation and Yes No hepatosplenomegaly present Neuro: COMMON NORMALS: patient oriented x3 SENSORIUM/ORIENTATION: Yes alert Course Vital Signs: Vital signs: Vital Signs Temperature 96.2 F L 10/02/23 04:03 Pulse Rate 70 10/02/23 06:29 Respiratory Rate 18 10/02/23 06:29 Blood Pressure 119/69 10/02/23 06:29 Pulse Oximetry 97 10/02/23 06:29 Oxygen Delivery Me thod Room Air 10/02/23 06:29 MDM - Abdominal Pain Medical Records I reviewed the patient's medical records. Lab Data I reviewed the patient's lab results. 10/02/23 04:15 10/02/23 04:15 Labs/Radiology: Radiology Impressions Abdomen/Pelvis CT 10/02/23 04:52 IMPRESSION: Moderately obstructing distal left ureteral calculus. COMMENTS: Consistent with the [place] [employer]'s Incidental Findings Committee white paper (J Am Reilly Radiol 2018): Any incidental renal lesion less than 1 cm or classified as too small to characterize, or any incidental cystic renal lesion characterized as simple-appearing, is likely benign. No follow-up imaging is recommended for these lesions per consensus recommendations based on imaging criteria. Laboratory Results WBC 5.14 10^3/uL (3.29-11.43) 10/02/23 04:15 RBC 4.85 10^6/uL (3.85-5.65) 10/02/23 04:15 Hgb 15.30 g/dL (11.27-16.99) 10/02/23 04:15 Hct 45.9 % (36-47) 10/02/23 04:15 MCV 94.6 fl (85-98) 10/02/23 04:15 MCH 31.5 pg (27-33) 10/02/23 04:15 MCHC 33.3 g/dL (30-55) 10/02/23 04:15 RDW 11.6 % (12.1-15.1) L 10/02/23 04:15 Plt Count 228 10^3/cmm (157-399) 10/02/23 04:15 MPV 8.4 fL (7.4-10.4) 10/02/23 04:15 Neut % (Auto) 74.3 % 10/02/23 04:15 Lymph % (Auto) 15.4 % 10/02/23 04:15 [place] % (Auto) 6.8 % 10/02/23 04:15 Eos % (Auto) 2.5 % 10/02/23 04:15 Baso % (Auto) 0.6 % 10/02/23 04:15 Neut # (Auto) 3.82 10^3/uL (1.8-7.7) 10/02/23 04:15 Lymph # (Auto) 0.8 10^3/uL (0.8-4.8) 10/02/23 04:15 [place] # (Auto) 0.4 10^3/uL (0.2-0.9) 10/02/23 04:15 Eos # (Auto) 0.1 10^3/uL (0.0-0.8) 10/02/23 04:15 Baso # (Auto) 0.0 10^3/uL (0.0-0.1) 10/02/23 04:15 Nucleated RBC % (auto) 0 % 10/02/23 04:15 Nucleated RBCs # 0.0 /100WBC 10/02/23 04:15 Sodium 139 mmol/L (136-145) 10/02/23 04:15 Potassium 3.6 mmol/L (3.5-5.1) 10/02/23 04:15 Chloride 100 mmol/L (98-107) 10/02/23 04:15 Carbon Dioxide 28 mmol/L (22-29) 10/02/23 04:15 Anion Gap 14.6 (5-19) 10/02/23 04:15 BUN 24 mg/dL (6-20) H 10/02/23 04:15 Creatinine 0.8 mg/dL (0.5-0.9) 10/02/23 04:15 GFR Calculation 74.7 mL/min (90-130) L 10/02/23 04:15 Glucose 129 mg/dL (65-115) H 10/02/23 04:15 Calculated Osmolality 294 mOsm/kg (285-295) 10/02/23 04:15 Calcium 9.7 mg/dL (8.5-10.5) 10/02/23 04:15 Total Bilirubin 0.4 mg/dL (0.15-1.2) 10/02/23 04:15 AST 14 U/L (0-32) 10/02/23 04:15 ALT 12 U/L (0-33) 10/02/23 04:15 Alkaline Phosphatase 95 U/L (35-105) 10/02/23 04:15 Total Protein 7.1 g/dL (6.6-8.7) 10/02/23 04:15 Albumin 4.4 g/dL (3.5-5.2) 10/02/23 04:15 Globulin 2.7 g/dL (1.3-4.6) 10/02/23 04:15 Lipase 70 U/L (13-60) H 10/02/23 04:15 Urine Color Yellow (Yellow) 10/02/23 04:09 Urine Appearance Cloudy (CLEAR) A 10/02/23 04:09 Urine pH 5 (5-7) 10/02/23 04:09 Ur Specific [place] 1.030 (1.005-1.030) 10/02/23 04:09 Urine Protein Trace (Negative) 10/02/23 04:09 Urine Glucose (UA) Norm (Normal) 10/02/23 04:09 Urine Ketones 1+ (Negative) H 10/02/23 04:09 Urine Blood 3+ (Negative) H 10/02/23 04:09 Urine Nitrate Negative (Negative) 10/02/23 04:09 Urine Bilirubin Neg (Negative) 10/02/23 04:09 Urine Urobilinogen Neg mg/dL (Negative) 10/02/23 04:09 Ur Leukocyte Esterase Trace (Negative) H 10/02/23 04:09 Urine RBC 15-25 /hpf (0-2) H 10/02/23 04:09 Urine WBC 5-10 /hpf (0-5) H 10/02/23 04:09 Ur Squamous Epith Cells 10-15 /hpf (0-5) H 10/02/23 04:09 Amorphous Sediment Not Reportable 10/02/23 04:09 Urine Bacteria 2+ /hpf (NONE) H 10/02/23 04:09 Urine Mucus 1+ /hpf 10/02/23 04:09 Discharge Plan Discharge Patient Disposition: Home Clinical Impression: Kidney stone Condition: Stable Prescriptions: New hydrocodone-acetaminophen 5-325 mg tablet 1 tab PO Q6H PRN (Reason: pain) Qty: 15 0RF tamsulosin 0.4 mg capsule 0.4 mg PO DAILY Qty: 14 0RF promethazine 25 mg tablet 25 mg PO Q6H PRN (Reason: nausea and vomiting) Qty: 20 0RF Cipro 250 mg tablet 250 mg PO BID Qty: 14 0RF No Action acetaminophen 325 mg capsule 325 mg PO QID PRN (Reason: Pain) ciprofloxacin HCl 500 mg tablet 500 mg PO BID 7 Days Qty: 14 0RF escitalopram oxalate [Lexapro] 10 mg tablet 10 mg PO DAILY Qty: 30 3RF nitrofurantoin monohyd/m-cryst [Macrobid] 100 mg capsule 100 mg PO DAILY Qty: 30 2RF Rx Instructions: must administer with a meal/food cyclobenzaprine 5 mg tablet 5 mg PO BID PRN (Reason: muscle spasm) 7 Days Qty: 14 0RF Discharge Orders: Discharge ED (Routine); Ordered 10/02/23 Ordered By: Nadeem Hester Referrals: Kenroy Miguel MD [Primary Care Provider] - Discharge Diet: Usual diet Discharge Activity: Increase activity as tolerated Patient Instructions: Kidney Stones (ED), Opioid Safety, Pain Management Activity Restrictions/Additional Instructions: Thank you for choosing [facility] for your healthcare needs today. It is very important that you follow up as instructed or that you return to the Emergency Department should you have concerns or if your condition changes or worsens in any way. You were seen today for abdominal pain you were found to have a kidney stone. You should strain your urine to catch the stone. Also recommend you start some oral antibiotics. senior technical project manager will make arrangements for you to follow-up with urology Sign Out Sign Out Data: Patient Sign Out occurred on 10/02/23 at 06:57. Patient's care was discussed, and care was transferred from Daniel Nunn DO to Nadeem Hester DO. Coding Level of Care Code ED Credit Adjuster for Chg Fwd Documented by User: Nadeem Hester DO 10/02/23 07:28 HPI - Abdominal Pain General: Chief Complaint: Abdominal Pain Stated Complaint: Lower abd pain Time Seen by Provider: 10/02/23 04:04 [facility] ED PFSH: Medical History Palpitations Surgical History History of bilateral tubal ligation (01/30/06) Performed at time of section. Performed by Dr. Morales at [facility] in [place], [place]. H/O section (01/30/06) With bilateral tubal ligation. Performed by Dr. Morales at [facility] in [place], [place]. Family History Father Diabetes Mother , AT AGE 24 No problems noted. Denies family history of Colon cancer Ovarian cancer Prostate cancer Heart disease Hypercholesteremia Breast cancer Hypertension Uterine cancer Thyroid disease Stroke Social History Smoking and tobacco/nicotine status: unknown if used tobacco/nicotine Second hand smoke exposure: No Alcohol intake: never Substance/Drug Use: never Course Vital Signs: Vital signs: Vital Signs Temperature 96.2 F L 10/02/23 04:03 Pulse Rate 70 10/02/23 06:29 Respiratory Rate 18 10/02/23 06:29 Blood Pressure 119/69 10/02/23 06:29 Pulse Oximetry 97 10/02/23 06:29 Oxygen Delivery Me thod Room Air 10/02/23 06:29 MDM - Abdominal Pain Medical Decision Making 5 mm distal ureteral stone. Will discharge patient home on hydrocodone tamsulosin promethazine as needed. Strain urine and ask case management to make a referral to urology. Urine did show a few white blood cells but more squamous cells do not believe there is any infection involved white count is normal. Lab Data 10/02/23 04:15 10/02/23 04:15 Labs/Radiology: Radiology Impressions Abdomen/Pelvis CT 10/02/23 04:52 IMPRESSION: Moderately obstructing distal left ureteral calculus. COMMENTS: Consistent with the [place] [employer]'s Incidental Findings Committee white paper (J Am Reilly Radiol 2018): Any incidental renal lesion less than 1 cm or classified as too small to characterize, or any incidental cystic renal lesion characterized as simple-appearing, is likely benign. No follow-up imaging is recommended for these lesions per consensus recommendations based on imaging criteria. Laboratory Results WBC 5.14 10^3/uL (3.29-11.43) 10/02/23 04:15 RBC 4.85 10^6/uL (3.85-5.65) 10/02/23 04:15 Hgb 15.30 g/dL (11.27-16.99) 10/02/23 04:15 Hct 45.9 % (36-47) 10/02/23 04:15 MCV 94.6 fl (85-98) 10/02/23 04:15 MCH 31.5 pg (27-33) 10/02/23 04:15 MCHC 33.3 g/dL (30-55) 10/02/23 04:15 RDW 11.6 % (12.1-15.1) L 10/02/23 04:15 Plt Count 228 10^3/cmm (157-399) 10/02/23 04:15 MPV 8.4 fL (7.4-10.4) 10/02/23 04:15 Neut % (Auto) 74.3 % 10/02/23 04:15 Lymph % (Auto) 15.4 % 10/02/23 04:15 [place] % (Auto) 6.8 % 10/02/23 04:15 Eos % (Auto) 2.5 % 10/02/23 04:15 Baso % (Auto) 0.6 % 10/02/23 04:15 Neut # (Auto) 3.82 10^3/uL (1.8-7.7) 10/02/23 04:15 Lymph # (Auto) 0.8 10^3/uL (0.8-4.8) 10/02/23 04:15 [place] # (Auto) 0.4 10^3/uL (0.2-0.9) 10/02/23 04:15 Eos # (Auto) 0.1 10^3/uL (0.0-0.8) 10/02/23 04:15 Baso # (Auto) 0.0 10^3/uL (0.0-0.1) 10/02/23 04:15 Nucleated RBC % (auto) 0 % 10/02/23 04:15 Nucleated RBCs # 0.0 /100WBC 10/02/23 04:15 Sodium 139 mmol/L (136-145) 10/02/23 04:15 Potassium 3.6 mmol/L (3.5-5.1) 10/02/23 04:15 Chloride 100 mmol/L (98-107) 10/02/23 04:15 Carbon Dioxide 28 mmol/L (22-29) 10/02/23 04:15 Anion Gap 14.6 (5-19) 10/02/23 04:15 BUN 24 mg/dL (6-20) H 10/02/23 04:15 Creatinine 0.8 mg/dL (0.5-0.9) 10/02/23 04:15 GFR Calculation 74.7 mL/min (90-130) L 10/02/23 04:15 Glucose 129 mg/dL (65-115) H 10/02/23 04:15 Calculated Osmolality 294 mOsm/kg (285-295) 10/02/23 04:15 Calcium 9.7 mg/dL (8.5-10.5) 10/02/23 04:15 Total Bilirubin 0.4 mg/dL (0.15-1.2) 10/02/23 04:15 AST 14 U/L (0-32) 10/02/23 04:15 ALT 12 U/L (0-33) 10/02/23 04:15 Alkaline Phosphatase 95 U/L (35-105) 10/02/23 04:15 Total Protein 7.1 g/dL (6.6-8.7) 10/02/23 04:15 Albumin 4.4 g/dL (3.5-5.2) 10/02/23 04:15 Globulin 2.7 g/dL (1.3-4.6) 10/02/23 04:15 Lipase 70 U/L (13-60) H 10/02/23 04:15 Urine Color Yellow (Yellow) 10/02/23 04:09 Urine Appearance Cloudy (CLEAR) A 10/02/23 04:09 Urine pH 5 (5-7) 10/02/23 04:09 Ur Specific [place] 1.030 (1.005-1.030) 10/02/23 04:09 Urine Protein Trace (Negative) 10/02/23 04:09 Urine Glucose (UA) Norm (Normal) 10/02/23 04:09 Urine Ketones 1+ (Negative) H 10/02/23 04:09 Urine Blood 3+ (Negative) H 10/02/23 04:09 Urine Nitrate Negative (Negative) 10/02/23 04:09 Urine Bilirubin Neg (Negative) 10/02/23 04:09 Urine Urobilinogen Neg mg/dL (Negative) 10/02/23 04:09 Ur Leukocyte Esterase Trace (Negative) H 10/02/23 04:09 Urine RBC 15-25 /hpf (0-2) H 10/02/23 04:09 Urine WBC 5-10 /hpf (0-5) H 10/02/23 04:09 Ur Squamous Epith Cells 10-15 /hpf (0-5) H 10/02/23 04:09 Amorphous Sediment Not Reportable 10/02/23 04:09 Urine Bacteria 2+ /hpf (NONE) H 10/02/23 04:09 Urine Mucus 1+ /hpf 10/02/23 04:09 All radiology interpretation(s) finalized by discharge Discharge Plan Discharge Patient Disposition: Home Clinical Impression: Kidney stone Condition: Stable Prescriptions: New hydrocodone-acetaminophen 5-325 mg tablet 1 tab PO Q6H PRN (Reason: pain) Qty: 15 0RF tamsulosin 0.4 mg capsule 0.4 mg PO DAILY Qty: 14 0RF promethazine 25 mg tablet 25 mg PO Q6H PRN (Reason: nausea and vomiting) Qty: 20 0RF Cipro 250 mg tablet 250 mg PO BID Qty: 14 0RF No Action acetaminophen 325 mg capsule 325 mg PO QID PRN (Reason: Pain) ciprofloxacin HCl 500 mg tablet 500 mg PO BID 7 Days Qty: 14 0RF escitalopram oxalate [Lexapro] 10 mg tablet 10 mg PO DAILY Qty: 30 3RF nitrofurantoin monohyd/m-cryst [Macrobid] 100 mg capsule 100 mg PO DAILY Qty: 30 2RF Rx Instructions: must administer with a meal/food cyclobenzaprine 5 mg tablet 5 mg PO BID PRN (Reason: muscle spasm) 7 Days Qty: 14 0RF Discharge Orders: Discharge ED (Routine); Ordered 10/02/23 Ordered By: Nadeem Hester Referrals: Kenroy Miguel MD [Primary Care Provider] - Discharge Diet: Usual diet Discharge Activity: Increase activity as tolerated Patient Instructions: Kidney Stones (ED), Opioid Safety, Pain Management Activity Restrictions/Additional Instructions: Thank you for choosing [facility] for your healthcare needs today. It is very important that you follow up as instructed or that you return to the Emergency Department should you have concerns or if your condition changes or worsens in any way. You were seen today for abdominal pain you were found to have a kidney stone. You should strain your urine to catch the stone. Also recommend you start some oral antibiotics. senior technical project manager will make arrangements for you to follow-up with urology Sign Out Sign Out Data: Patient Sign Out occurred on 10/02/23 at 06:57. Patient's care was discussed, and care was transferred from Daniel Nunn DO to Nadeem Hester DO. Coding Level of Care Code ED Credit Adjuster for Pattie Feliciano
[2023-10-02] MEDS: dicyclomine 20 mg Tablet PO (04:19)
[2023-10-02] MEDS: ketorolac 30 mg/mL INJ IVP (04:20)
[2023-10-02 04:23] LABS: Basophils % 0.6 %; Eosinophils # 0.1 10^3/uL (0.0-0.8); Eosinophils % 2.5 %; Hematocrit 45.9 % (36-47); Lymphocytes # 0.8 10^3/uL (0.8-4.8); Lymphocytes % 15.4 %; Mean Corpuscular HGB Conc 33.3 g/dL (30-55); Mean Corpuscular Hemoglobin 31.5 pg (27-33); Mean Corpuscular Volume 94.6 fl (85-98); Mean Platelet Volume 8.4 fL (7.4-10.4); Monocytes # 0.4 10^3/uL (0.2-0.9); Monocytes % 6.8 %; Neutrophils # 3.82 10^3/uL (1.8-7.7); Neutrophils % 74.3 %; Nucleated Red Blood Cells % 0 %; Platelet Count 228 10^3/cmm (157-399); Red Blood Count 4.85 10^6/uL (3.85-5.65); Red Cell Distribution Width 11.6 % (12.1-15.1); White Blood Count 5.14 10^3/uL (3.29-11.43)
[2023-10-02 04:38] LABS: Alanine Aminotransferase 12 U/L (0-33); Albumin Level 4.4 g/dL (3.5-5.2); Alkaline Phosphatase 95 U/L (35-105); Anion Gap 14.6 (5-19); Aspartate Amino Transferase 14 U/L (0-32); Blood Urea Nitrogen 24 mg/dL (6-20); Calcium 9.7 mg/dL (8.5-10.5); Carbon Dioxide 28 mmol/L (22-29); Chloride 100 mmol/L (98-107); Creatinine Clr Calc Pharmacy 71.0766; Globulin 2.7 g/dL (1.3-4.6); Glomerular Filtration Rate 74.7 mL/min (90-130); Glucose 129 mg/dL (65-115); Lipase 70 U/L (13-60); Osmolality Calculated 294 mOsm/kg (285-295); Potassium 3.6 mmol/L (3.5-5.1); Sodium 139 mmol/L (136-145); Total Bilirubin 0.4 mg/dL (0.15-1.2); Total Protein 7.1 g/dL (6.6-8.7)
[2023-10-02 04:41] LABS: Add Urine Microscopic? YES; Bilirubin Urine Neg (Negative); Blood Urine 3+ (Negative); Glucose Urine UA Norm (Normal); Ketones Urine 1+ (Negative); Leukocyte Esterase Urine Trace (Negative); Nitrate Urine Negative (Negative); Protein Urine Trace (Negative); RBC Urine 15-25 /hpf (0-2); Urine Appearance Cloudy (CLEAR); Urine Color Yellow (Yellow); Urobilinogen Urine Neg (Negative); pH Urine 5 (5-7)
[2023-10-02 04:42] LABS: Add Urine Culture? No; Bacteria Urine 2+ /hpf; Mucus Urine 1+ /hpf
--- NOTE | 2023-10-02 04:52 | CTR_ITS ---
PROCEDURE INFORMATION: Exam: CT Abdomen And Pelvis With Contrast Exam date and time: 10/02/2023 5:01 AM Age: 53 years old Clinical indication: Abdominal pain; Prior surgery; Surgery date: 6+ months; Surgery type: Tubal; Additional info: Llq abd pain, left flank pain, elevated lipase TECHNIQUE: Imaging protocol: Computed tomography of the abdomen and pelvis with contrast. Radiation optimization: All CT scans at this facility use at least one of these dose optimization techniques: automated exposure control; mA and/or kV adjustment per patient size (includes targeted exams where dose is matched to clinical indication); or iterative reconstruction. Contrast material: OMNI 350; Contrast volume: 100 ml; Contrast route: INTRAVENOUS (IV); COMPARISON: CT abdomen pelvis w con* [id number] 04/24/2023 3:53 PM RADIATION DOSE METRICS: Total DLP (mGy-cm): 476 FINDINGS: Liver: Normal. No mass. Gallbladder and biliary ducts: Normal. No calcified stones. No ductal dilation. Pancreas: Normal. No ductal dilation. Spleen: Normal. No splenomegaly. Adrenal glands: Normal. No mass. Kidneys and ureters: 5 mm moderately obstructing distal left ureteral calculus (3-76). Diminished nephrogram on that left side due to the obstruction. Subcentimeter right renal cysts. Stomach and bowel: Unremarkable. No obstruction. No mucosal thickening. Appendix: No evidence of appendicitis. Intraperitoneal space: Unremarkable. No free air. No significant fluid collection. Vasculature: Unremarkable. No abdominal aortic aneurysm. Lymph nodes: Unremarkable. No enlarged lymph nodes. Urinary bladder: Unremarkable as visualized. Reproductive: Unremarkable as visualized. Bones/joints: Unremarkable. No acute fracture. Soft tissues: Unremarkable. CT/CT abdomen pelvis w con* [id number] IMPRESSION: Moderately obstructing distal left ureteral calculus. COMMENTS: Consistent with the [employer]'s Incidental Findings Committee white paper (J Am Reilly Radiol 2018): Any incidental renal lesion less than 1 cm or classified as too small to characterize, or any incidental cystic renal lesion characterized as simple-appearing, is likely benign. No follow-up imaging is recommended for these lesions per consensus recommendations based on imaging criteria.
[2023-10-02] MEDS: iohexol 350 mg/mL 500 mL Btl (per mL) IV (05:04)
[2023-10-02] MEDS: sodium chloride 0.9% 1,000 ML 999 ML IV (05:23)
[2023-10-02] MEDS: morphine 4 mg/mL SDV 1 mL IVP (05:57)
[2023-10-02] MEDS: ondansetron 2 mg/ML SDV 2 mL 4 MG IVP (05:57)
[2023-10-02 06:29] VITALS: BP 119/69; PULSE 70; RESP 18; O2SAT 97
[2023-10-02] MEDS: morphine 4 mg/mL SDV 1 mL IM (07:47)
[2023-10-02 08:04] VITALS: PULSE 75; O2SAT 98
== END 2023-10-02 07:43 | disposition home or self-care (01) ==
PROVIDERS: Emergency Medicine; Emergency Provider Family Medicine; PCP Obstetrics & Gynecology
DX: N20.1 Calculus of ureter (principal)
CPT/HCPCS: 74177; 80053; 81001; 83690; 85025; 96361; 96372; 96374; 96375; 99285; J1885; J2270; J2405; J7030; Q9967

== ENCOUNTER 2023-12-01 10:35 | Emergency (ER) | payer OTHER, SELFPAY ==
[2023-12-01 10:43] VITALS: BP 152/97; PULSE 87; RESP 18; TEMP 36.8; O2SAT 99; BMI 25.6
--- NOTE | 2023-12-01 11:02 | W.ED.FEMALGU ---
HPI - Female Genitourinary General: Chief complaint: Urogenital-Female Stated complaint: urinary issues Time Seen by Provider: 12/01/23 10:37 History of Present Illness: 49-year-old female presents emergency room complaining of frequency in urination and left-sided flank pain. She has a known history of kidney stones follow-up with a COVID she had passed stones. She has not noticed any hematuria no dysuria urgency or frequency. Associated symptoms: Deny abdominal pain Related Data Home Medications Medication Instructions Recorded Confirmed acetaminophen 325 mg capsule 325 mg PO QID PRN Pain 07/22/22 10/06/23 Previous Rx's Medication Instructions Recorded cyclobenzaprine 5 mg tablet 5 mg PO BID PRN muscle spasm 7 09/25/23 days #14 tabs promethazine 25 mg tablet 25 mg PO Q6H PRN nausea and 10/02/23 vomiting #20 tabs tamsulosin 0.4 mg capsule 0.4 mg PO DAILY #14 caps 10/02/23 hydrocodone 5 mg-acetaminophen 325 1 tab PO Q6H PRN pain #20 tabs 12/01/23 mg tablet promethazine 25 mg tablet 25 mg PO Q6H PRN nausea and 12/01/23 vomiting #20 tabs tamsulosin 0.4 mg capsule 0.4 mg PO DAILY #14 caps 12/01/23 Allergies Allergy/AdvReac Type Severity Reaction Status Date / Time No Known Allergies Allergy Verified 10/06/23 08:47 Review of Systems Const: Denies: fever(s) or chills Card: Denies: chest pain Resp: Denies: dyspnea GI: Denies: abdominal pain : Denies: dysuria, urinary frequency or urinary urgency Musc: Denies: neck pain or back pain Skin/Breast: Denies: rash PFSH ED PFSH: Medical History Palpitations Surgical History History of bilateral tubal ligation (01/30/06) Performed at time of section. Performed by Dr. Morales at [facility] [place] in [place], [place]. H/O section (01/30/06) With bilateral tubal ligation. Performed by Dr. Morales at [facility] [place] in [place], [place]. Family History Father Diabetes Mother , AT AGE 24 No problems noted. Denies family history of Colon cancer Ovarian cancer Prostate cancer Heart disease Hypercholesteremia Breast cancer Hypertension Uterine cancer Thyroid disease Stroke Social History Smoking and tobacco/nicotine status: never used tobacco/nicotine Second hand smoke exposure: No Alcohol intake: never Substance/Drug Use: never Physical Exam Const: GENERAL APPEARANCE: cooperative ORIENTATION/CONSCIOUSNESS: Yes awake, Yes oriented to person, Yes oriented to place and Yes oriented to time HENMT: COMMON NORMALS: normocephalic, atraumatic and hearing grossly normal bilaterally HEAD & SCALP: normocephalic and atraumatic Resp: COMMON NORMALS: normal respiratory effort, No retractions, No use of accessory muscles and clear to auscultation bilaterally AUSCULTATION: clear to auscultation bilaterally Cardio: COMMON NORMALS: regular rate, regular rhythm and No murmurs present (Cardio) RATE: regular rate RHYTHM: regular rhythm GI: COMMON NORMALS: Soft to palpation and No hepatosplenomegaly present AUSCULTATION: Yes normoactive bowel sounds PALPATION: Yes Soft to palpation, No Tenderness to palpation present (GI), No Guarding due to palpation present (GI) and Yes No hepatosplenomegaly present : BLADDER/KIDNEY EXAM: Yes CVA tenderness Back/Pelvis: GENERAL BACK: Yes CVA tenderness CVA tenderness: left Extremity: COMMON NORMALS: normal to inspection, capillary refill normal, no clubbing, cyanosis or edema, no calf tenderness and no pedal edema Neuro: SENSORIUM/ORIENTATION: Yes oriented to person, Yes oriented to place and Yes oriented to time Skin: COMMON NORMALS: no rashes or lesions noted GENERAL SKIN EXAM: no rashes or lesions noted Course Vital Signs: Vital signs: Vital Signs Temperature 98.2 F 12/01/23 10:43 Pulse Rate 76 12/01/23 11:30 Respiratory Rate 18 12/01/23 10:43 Blood Pressure 120/79 12/01/23 11:30 Pulse Oximetry 100 12/01/23 11:30 Oxygen Delivery Me thod Room Air 12/01/23 11:30 MDM - Female Medical Decision Making CT shows left distal ureter stone 4 to 5 mm at the UVJ. Interestingly her urine is very light clear she does not have any microscopic hematuria. Nitrates and leukocyte esterase are negative. Will discharge patient home on tamsulosin. Hydrocodone and promethazine. Follow-up with the urology group she has seen in the past. Patient will make her own arrangements for follow-up. Medical Records I reviewed the patient's medical records. Lab Data I reviewed the patient's lab results. 12/01/23 10:50 12/01/23 10:50 Radiology Impressions Abdomen/Pelvis CT 12/01/23 11:51 IMPRESSION: 1. Stable mild left hydronephrosis and left hydroureter. The 4-5 mm nonobstructing calculus in the distal left ureter has moved distally and is now seen at the left UVJ, almost completely passed into the urinary bladder. 2. Stable bilateral adrenal adenomas. 3. Stable 10-11 mm hypodensity in the left lobe of the liver. Laboratory Results WBC 3.88 10^3/uL (3.29-11.43) 12/01/23 10:50 RBC 4.59 10^6/uL (3.85-5.65) 12/01/23 10:50 Hgb 14.70 g/dL (11.27-16.99) 12/01/23 10:50 Hct 44.4 % (36-47) 12/01/23 10:50 MCV 96.7 fl (85-98) 12/01/23 10:50 MCH 32.0 pg (27-33) 12/01/23 10:50 MCHC 33.1 g/dL (30-55) 12/01/23 10:50 RDW 11.9 % (12.1-15.1) L 12/01/23 10:50 Plt Count 234 10^3/cmm (157-399) 12/01/23 10:50 MPV 8.4 fL (7.4-10.4) 12/01/23 10:50 Neut % (Auto) 67.0 % 12/01/23 10:50 Lymph % (Auto) 22.4 % 12/01/23 10:50 [place] % (Auto) 8.0 % 12/01/23 10:50 Eos % (Auto) 1.5 % 12/01/23 10:50 Baso % (Auto) 0.8 % 12/01/23 10:50 Neut # (Auto) 2.60 10^3/uL (1.8-7.7) 12/01/23 10:50 Lymph # (Auto) 0.9 10^3/uL (0.8-4.8) 12/01/23 10:50 [place] # (Auto) 0.3 10^3/uL (0.2-0.9) 12/01/23 10:50 Eos # (Auto) 0.1 10^3/uL (0.0-0.8) 12/01/23 10:50 Baso # (Auto) 0.0 10^3/uL (0.0-0.1) 12/01/23 10:50 Nucleated RBC % (auto) 0 % 12/01/23 10:50 Nucleated RBCs # 0.0 /100WBC 12/01/23 10:50 Sodium 140 mmol/L (136-145) 12/01/23 10:50 Potassium 3.4 mmol/L (3.5-5.1) L 12/01/23 10:50 Chloride 101 mmol/L (98-107) 12/01/23 10:50 Carbon Dioxide 27 mmol/L (22-29) 12/01/23 10:50 Anion Gap 15.4 (5-19) 12/01/23 10:50 BUN 18 mg/dL (6-20) 12/01/23 10:50 Creatinine 0.7 mg/dL (0.5-0.9) 12/01/23 10:50 GFR Calculation 87.2 mL/min (90-130) L 12/01/23 10:50 Glucose 105 mg/dL (65-115) 12/01/23 10:50 Calculated Osmolality 292 mOsm/kg (285-295) 12/01/23 10:50 Calcium 9.5 mg/dL (8.5-10.5) 12/01/23 10:50 Total Bilirubin 0.4 mg/dL (0.15-1.2) 12/01/23 10:50 AST 17 U/L (0-32) 12/01/23 10:50 ALT 15 U/L (0-33) 12/01/23 10:50 Alkaline Phosphatase 88 U/L (35-105) 12/01/23 10:50 Total Protein 6.9 g/dL (6.6-8.7) 12/01/23 10:50 Albumin 4.4 g/dL (3.5-5.2) 12/01/23 10:50 Globulin 2.5 g/dL (1.3-4.6) 12/01/23 10:50 Urine Color Yellow (Yellow) 12/01/23 10:50 Urine Appearance Clear (CLEAR) 12/01/23 10:50 Urine pH 7.5 (5-7) 12/01/23 10:50 Ur Specific [place] 1.005 (1.005-1.030) 12/01/23 10:50 Urine Protein Negative (Negative) 12/01/23 10:50 Urine Glucose (UA) Negative (Normal) 12/01/23 10:50 Urine Ketones Negative (Negative) 12/01/23 10:50 Urine Blood Negative (Negative) 12/01/23 10:50 Urine Nitrate Negative (Negative) 12/01/23 10:50 Urine Bilirubin Negative (Negative) 12/01/23 10:50 Urine Urobilinogen 0.2 mg/dL (Negative) 12/01/23 10:50 Ur Leukocyte Esterase Negative (Negative) 12/01/23 10:50 Urine RBC 0-2 /hpf (0-2) 12/01/23 10:50 Urine WBC 0-5 /hpf (0-5) 12/01/23 10:50 Ur Squamous Epith Cells 0-5 /hpf (0-5) 12/01/23 10:50 Amorphous Sediment Not Reportable 12/01/23 10:50 Urine Bacteria None seen /hpf (NONE) 12/01/23 10:50 Hyaline Casts 0-4 /lpf H 12/01/23 10:50 All radiology interpretation(s) finalized by discharge Discharge Plan Discharge Patient Disposition: Home Clinical Impression: Left nephrolithiasis Condition: Stable Prescriptions: New hydrocodone-acetaminophen 5-325 mg tablet 1 tab PO Q6H PRN (Reason: pain) Qty: 20 0RF promethazine 25 mg tablet 25 mg PO Q6H PRN (Reason: nausea and vomiting) Qty: 20 0RF tamsulosin 0.4 mg capsule 0.4 mg PO DAILY Qty: 14 0RF No Action acetaminophen 325 mg capsule 325 mg PO QID PRN (Reason: Pain) cyclobenzaprine 5 mg tablet 5 mg PO BID PRN (Reason: muscle spasm) 7 Days Qty: 14 0RF tamsulosin 0.4 mg capsule 0.4 mg PO DAILY Qty: 14 0RF promethazine 25 mg tablet 25 mg PO Q6H PRN (Reason: nausea and vomiting) Qty: 20 0RF Discharge Orders: Discharge ED (Routine); Ordered 12/01/23 Ordered By: Nadeem Hester Referrals: Kenroy Miguel MD [Primary Care Provider] - Discharge Diet: Usual diet Discharge Activity: Resume usual activity Patient Instructions: Kidney Stones (ED), Opioid Safety, Pain Management Activity Restrictions/Additional Instructions: Thank you for choosing [facility] for your healthcare needs today. It is very important that you follow up as instructed or that you return to the Emergency Department should you have concerns or if your condition changes or worsens in any way. Coding Level of Care Code ED Cut Out Machine Operator for Pattie Feliciano
[2023-12-01 11:03] LABS: Basophils % 0.8 %; Eosinophils # 0.1 10^3/uL (0.0-0.8); Eosinophils % 1.5 %; Hematocrit 44.4 % (36-47); Lymphocytes # 0.9 10^3/uL (0.8-4.8); Lymphocytes % 22.4 %; Mean Corpuscular HGB Conc 33.1 g/dL (30-55); Mean Corpuscular Volume 96.7 fl (85-98); Mean Platelet Volume 8.4 fL (7.4-10.4); Monocytes # 0.3 10^3/uL (0.2-0.9); Nucleated Red Blood Cells % 0 %; Platelet Count 234 10^3/cmm (157-399); Red Blood Count 4.59 10^6/uL (3.85-5.65); Red Cell Distribution Width 11.9 % (12.1-15.1); White Blood Count 3.88 10^3/uL (3.29-11.43)
[2023-12-01 11:07] LABS: Charge for UA Resulting for Rev
[2023-12-01 11:12] LABS: Bilirubin Urine Negative (Negative); Blood Urine Negative (Negative); Glucose Urine UA Negative (Normal); Ketones Urine Negative (Negative); Leukocyte Esterase Urine Negative (Negative); Nitrate Urine Negative (Negative); Protein Urine Negative (Negative); Specific Gravity, Urine 1.005 (1.005-1.030); Urine Appearance Clear (CLEAR); Urine Color Yellow (Yellow); Urobilinogen Urine 0.2 mg/dL (Negative); pH Urine 7.5 (5-7)
[2023-12-01 11:14] LABS: Bacteria Urine None Seen /hpf; Hyaline Casts Urine 0-4 /lpf; RBC Urine 0-2 /hpf (0-2); Squamous Epithelial Cell Urine 0-5 /hpf (0-5); WBC Urine 0-5 /hpf (0-5)
[2023-12-01] MEDS: sodium chloride 0.9% 1,000 ML 999 ML IV (11:20)
[2023-12-01 11:21] LABS: Alanine Aminotransferase 15 U/L (0-33); Albumin Level 4.4 g/dL (3.5-5.2); Alkaline Phosphatase 88 U/L (35-105); Anion Gap 15.4 (5-19); Aspartate Amino Transferase 17 U/L (0-32); Blood Urea Nitrogen 18 mg/dL (6-20); Calcium 9.5 mg/dL (8.5-10.5); Carbon Dioxide 27 mmol/L (22-29); Chloride 101 mmol/L (98-107); Creatinine Clr Calc Pharmacy 80.4407; Globulin 2.5 g/dL (1.3-4.6); Glomerular Filtration Rate 87.2 mL/min (90-130); Glucose 105 mg/dL (65-115); Osmolality Calculated 292 mOsm/kg (285-295); Potassium 3.4 mmol/L (3.5-5.1); Sodium 140 mmol/L (136-145); Total Bilirubin 0.4 mg/dL (0.15-1.2); Total Protein 6.9 g/dL (6.6-8.7)
[2023-12-01 11:30] VITALS: BP 120/79; PULSE 76; O2SAT 100
--- NOTE | 2023-12-01 11:51 | CTR_ITS ---
PROCEDURE INFORMATION: Exam: CT Abdomen And Pelvis Without Contrast Exam date and time: 12/01/2023 12:02 PM Age: 53 years old Clinical indication: Flank; Left; Prior surgery; Surgery date: 6+ months; Surgery type: Tubal; Patient HX: PT has HX of kidney stones, PT states she had a kidney stones on Friday and was seen in [place]. PT states she was better, PT states she started getting lower abdominal pain yesterday. PT reports waking up today with increased pain, burning sensation, and increased trips to bathroom. PT denies blood in urine. ; Additional info: Flank pain TECHNIQUE: Imaging protocol: Computed tomography of the abdomen and pelvis without contrast. Radiation optimization: All CT scans at this facility use at least one of these dose optimization techniques: automated exposure control; mA and/or kV adjustment per patient size (includes targeted exams where dose is matched to clinical indication); or iterative reconstruction. COMPARISON: CT abdomen pelvis w con* [id number] 10/02/2023 5:01 AM RADIATION DOSE METRICS: Total DLP (mGy-cm): 551.39 FINDINGS: Lungs: The lung bases are clear. Liver: There is a stable 10-11 mm hypodensity in the left lobe of the liver, likely representing a cyst. No other liver lesions are identified. Gallbladder and biliary ducts: Normal. No calcified stones. No ductal dilation. Pancreas: The pancreas is normal in appearance. No evidence of pancreatic ductal dilatation. Spleen: The spleen is normal in appearance. Adrenal glands: There are stable bilateral hypodense adrenal gland nodules measuring about 10 mm on the right and 12 mm on the left. These nodules are low-density and likely represent adrenal adenomas Kidneys and ureters: There is a 1-2 mm nonobstructing calculus in the lower pole calyx of the right kidney. There is stable, mild left hydronephrosis and left hydroureter. The 4-5 mm nonobstructing calculus in the distal left ureter seen at the time of the previous study has now moved distally into the left UVJ and has almost completely passed into the urinary bladder. Stomach and bowel: Unremarkable. No obstruction. No mucosal thickening. Appendix: No evidence of appendicitis. Intraperitoneal space: Unremarkable. No free air. No significant fluid collection. Vasculature: Unremarkable. No abdominal aortic aneurysm. Lymph nodes: Unremarkable. No enlarged lymph nodes. Urinary bladder: Se no urinary bladder wall thickening. Reproductive: Unremarkable as visualized. Bones/joints: No acute osseous lesions identified. Soft tissues: Unremarkable. CT/CT kidney stone [id number] IMPRESSION: 1. Stable mild left hydronephrosis and left hydroureter. The 4-5 mm nonobstructing calculus in the distal left ureter has moved distally and is now seen at the left UVJ, almost completely passed into the urinary bladder. 2. Stable bilateral adrenal adenomas. 3. Stable 10-11 mm hypodensity in the left lobe of the liver.
[2023-12-01 13:30] VITALS: BP 125/92; PULSE 71; O2SAT 100
[2023-12-01 13:54] VITALS: BP 106/71; PULSE 73; RESP 17; O2SAT 98
== END 2023-12-01 13:57 | disposition home or self-care (01) ==
PROVIDERS: Emergency Provider Family Medicine; PCP Obstetrics & Gynecology
DX: N13.2 Hydronephrosis with renal and ureteral calculous obstruction (principal)
CPT/HCPCS: 36415; 74176; 80053; 81003; 81015; 85025; 96360; 96361; 99284; J7030

== ENCOUNTER → 2024-01-02 13:05 | Outpatient (BNVA) | payer OTHER, SELFPAY | PROVIDERS: PCP Obstetrics & Gynecology; Visit Provider Nurse Practitioner Family | DX: Z87.442 Personal history of urinary calculi (principal) | CPT/HCPCS: 81003 ==

== ENCOUNTER 2024-09-03 06:54 | Emergency (ER) | payer OTHER, SELFPAY ==
--- NOTE | 2024-09-03 06:59 | ECG_ITS ---
[facility]: 2024[facility]03 Pat Name: Alaina Mason Department: Room: Gender: Female Esthetician: : 1970 Requested By: Jones Nunez Order Number: [id number] Bowman MD: KATHY HORNE Measurements Intervals [place] Rate: 80 P: 69 HI: 139 QRS: 48 QRSD: 88 T: 78 QT: 371 QTc: 429 Interpretive Statements SINUS RHYTHM WITH SINUS ARRHYTHMIA No previous ECG available for comparison Electronically Signed On 09-04-2024 23:49:19 CDT by KATHY HORNE [email or web address]
[2024-09-03 07:01] VITALS: BP 109/73; PULSE 77; RESP 17; TEMP 36.3; O2SAT 100; BMI 27.3
[2024-09-03 08:24] LABS: Basophils % 0.7 %; Eosinophils # 0.1 10^3/uL (0.0-0.8); Hematocrit 41.7 % (36-47); Lymphocytes % 23.7 %; Mean Corpuscular HGB Conc 33.1 g/dL (30-55); Mean Corpuscular Hemoglobin 32.1 pg (27-33); Mean Platelet Volume 8.4 fL (7.4-10.4); Monocytes # 0.4 10^3/uL (0.2-0.9); Monocytes % 9.6 %; Neutrophils # 2.58 10^3/uL (1.8-7.7); Neutrophils % 63.8 %; Nucleated Red Blood Cells % 0 %; Platelet Count 211 10^3/cmm (157-399); Red Cell Distribution Width 11.7 % (12.1-15.1); White Blood Count 4.05 10^3/uL (3.29-11.43)
[2024-09-03 08:45] LABS: Troponin(5th) Baseline < 6 ng/L (0-10)
[2024-09-03 08:48] LABS: Alanine Aminotransferase 12 U/L (0-33); Albumin Level 4.3 g/dL (3.5-5.2); Alkaline Phosphatase 89 U/L (35-105); Aspartate Amino Transferase 13 U/L (0-32); Blood Urea Nitrogen 15 mg/dL (6-20); Calcium 9.7 mg/dL (8.5-10.5); Carbon Dioxide 27 mmol/L (22-29); Chloride 107 mmol/L (98-107); Creatinine Clr Calc Pharmacy 91.9656; Glomerular Filtration Rate 103.8 mL/min (90-130); Glucose 91 mg/dL (65-115); Osmolality Calculated 298 mOsm/kg (285-295); Sodium 144 mmol/L (136-145); Total Bilirubin 0.4 mg/dL (0.15-1.2); Total Protein 6.3 g/dL (6.6-8.7)
[2024-09-03 08:56] VITALS: BP 138/74; PULSE 65; O2SAT 100
--- NOTE | 2024-09-03 09:01 | ED_ITS ---
HPI - Chest Pain 2 General: Chief Complaint: Chest Pain Stated Complaint: chest pain Time Seen by Provider: 09/03/24 07:06 Source: patient Mode of arrival: ambulatory Limitations: no limitations History of Present Illness: Patient is a nice 54-year-old female presents to ED today following an episode of chest pain. Patient states she was blow drying her hair upside down when she got a sharp pain underneath her left breast. She states it lasted for several minutes before fully subsiding. Upon arrival she states she is asymptomatic. Patient does not describe symptoms of shortness of breath or difficulty breathing. She states she did have 1 similar episode approximately 3 weeks ago. Reports she is currently perimenopausal. She has not had any palpitations. She does have some hot flashes intermittently. No known history of cardiac disease. She is otherwise fairly healthy. MD complaint: chest pain Onset (ago): hour(s) Timing of current episode: now resolved Prior episodes: Yes (x 1) Pain location: substernal and left chest Pain radiation: none Severity: moderate Relieving factors: nothing Exacerbating factors: nothing Associated symptoms: Deny abdominal pain, dyspnea, fever(s), nausea, palpitations, syncope or vomiting Treatment prior to arrival: none Risk Factors: Coronary artery disease risk factors: none Thoracic aortic dissection risk factors: none Related Data Home Medications ?Medication ?Instructions ?Recorded ?Confirmed acetaminophen 325 mg capsule 650 mg PO QID PRN Pain 09/03/24 [id number] ac 400 1 tab PO DAILY 09/03/2409/22 mcg-calcium carb 500 mg-vit K1 20 mcg tablet naproxen sodium 220 mg tablet 440 mg PO Q12H PRN Fever Or Pain 09/03/24 09/03/24 (Aleve) soy isoflavone-black cohosh 1 cap PO BID 09/03/2409/22 root-magnolia bark 155 mg capsule (Estroven) Allergies Allergy/AdvReac Type Severity Reaction Status Date / Time No Known Allergies Allergy Verified 08/11/24 14:07 Review of Systems 2 Const: Denies: fever(s) or chills Eyes: Denies: change in vision or blurry vision Card: Reports: chest pain (subsided now) and edema; Denies: palpitations, irregular heart rhythm, swelling of feet/ankles, lightheadedness, syncope, pre-syncope or dyspnea on exertion Resp: Denies: dyspnea, productive cough or pain on inspiration GI: Denies: abdominal pain, nausea, vomiting, heartburn or diarrhea : Denies: dysuria Musc: Denies: neck pain, back pain or joint pain Skin/Breast: Denies: rash Neuro: Denies: headache(s), numbness in extremities, weakness in extremities, sensory changes or dizziness PFSH ED 2 PFSH: Medical History Tachycardia Palpitations Surgical History History of bilateral tubal ligation (01/30/06) Performed at time of section. Performed by Dr. Morales at [facility] [place] in [place], [place]. H/O section (01/30/06) With bilateral tubal ligation. Performed by Dr. Morales at [facility] [place] in [place], [place]. Family History Father Diabetes Mother , AT AGE 24 No problems noted. Denies family history of Colon cancer Ovarian cancer Prostate cancer Heart disease Hypercholesteremia Breast cancer Hypertension Uterine cancer Thyroid disease Stroke Social History Smoking and tobacco/nicotine status: never used tobacco/nicotine Second hand smoke exposure: No Alcohol intake: never Substance/Drug Use: never Physical Exam 2 Const: COMMON NORMALS: no acute distress, average body habitus, patient oriented x3, no limitations, healthy appearing, alert and well nourished G ENERAL APPEARANCE: cooperative HENMT: COMMON NORMALS: normocephalic and atraumatic HEAD & SCALP: n ormocephalic and atraumatic Neck/C-Spine: COMMON NORMALS: full ROM, no lymphadenopathy, supple and no meningeal signs Chest: COMMONS NORMALS: normal inspection of the chest and normal palpation of entire chest wall Resp: COMMON NORMALS: normal respiratory effort and clear to auscultation bilaterally AUSCULTATION: clear to auscultation bilaterally Cardio: COMMON NORMALS: regular rate and regular rhythm RATE: regular rate RHYTHM: regular rhythm GI: COMMON NORMALS: Normal to inspection, nondistended, normoactive bowel sounds present, Soft to palpation, non-tender, No hepatosplenomegaly present and no masses PALPATION: Yes Soft to palpation and Yes No hepatosplenomegaly present : COMMON NORMALS: Yes no CVA tenderness BLADDER/KIDNEY EXAM: Yes no CVA tenderness Back/Pelvis: COMMON NORMALS: no CVA tenderness and thoracic and lumbar spine normal to inspection Extremity: COMMON NORMALS: normal to inspection, capillary refill normal, no clubbing, cyanosis or edema, no calf tenderness and no pedal edema GENERAL: Y es normal exam except as noted Neuro: COMMON NORMALS: patient oriented x3 SENSORIUM/ORIENTATION: Yes alert MENINGEAL SIGNS: Yes no meningeal signs Skin: COMMON NORMALS: no rashes or lesions noted GENERAL SKIN EXAM: no rashes or lesions noted Course 2 Vital Signs: Vital signs: Vital Signs Temperature 97.4 F L 09/03/24 07:01 Pulse Rate 68 09/03/24 10:55 Respiratory Rate 18 09/03/24 10:38 Blood Pressure 107/67 09/03/24 10:55 Pulse Oximetry 98 09/03/24 10:55 Oxygen Delivery Me thod Room Air 09/03/24 07:01 MDM - Chest Pain Medical Decision Making Patient here after a brief episode of chest pain while she was blow drying her hair upside down. Once the chest pain resolved she has been completely asymptomatic since. Suspect this was some type of chest wall pain/spasm. Here she appears in no acute distress. Vital signs are normal. Her blood work here is completely unremarkable. Baseline repeat troponins are normal. Baseline repeat EKGs are nonischemic. CXR is normal. Patient will be allowed discharge with return precautions. Medical Records I reviewed the patient's medical records. Lab Data I reviewed the patient's lab results. 09/03/24 08:19 09/03/24 08:19 Radiology Impressions Chest X-Ray 09/03/24 09:03 IMPRESSION: No acute chest abnormality. Laboratory Results WBC 4.05 10^3/uL (3.29-11.43) 09/03/24 08:19 RBC 4.30 10^6/uL (3.85-5.65) 09/03/24 08:19 Hgb 13.80 g/dL (11.27-16.99) 09/03/24 08:19 Hct 41.7 % (36-47) 09/03/24 08:19 MCV 97.0 fl (85-98) 09/03/24 08:19 MCH 32.1 pg (27-33) 09/03/24 08:19 MCHC 33.1 g/dL (30-55) 09/03/24 08:19 RDW 11.7 % (12.1-15.1) L 09/03/24 08:19 Plt Count 211 10^3/cmm (157-399) 09/03/24 08:19 MPV 8.4 fL (7.4-10.4) 09/03/24 08:19 Neut % (Auto) 63.8 % 09/03/24 08:19 Lymph % (Auto) 23.7 % 09/03/24 08:19 [place] % (Auto) 9.6 % 09/03/24 08:19 Eos % (Auto) 2.0 % 09/03/24 08:19 Baso % (Auto) 0.7 % 09/03/24 08:19 Neut # (Auto) 2.58 10^3/uL (1.8-7.7) 09/03/24 08:19 Lymph # (Auto) 1.0 10^3/uL (0.8-4.8) 09/03/24 08:19 [place] # (Auto) 0.4 10^3/uL (0.2-0.9) 09/03/24 08:19 Eos # (Auto) 0.1 10^3/uL (0.0-0.8) 09/03/24 08:19 Baso # (Auto) 0.0 10^3/uL (0.0-0.1) 09/03/24 08:19 Nucleated RBC % (auto) 0 % 09/03/24 08:19 Nucleated RBCs # 0.0 /100WBC 09/03/24 08:19 Sodium 144 mmol/L (136-145) 09/03/24 08:19 Potassium 4.0 mmol/L (3.5-5.1) 09/03/24 08:19 Chloride 107 mmol/L (98-107) 09/03/24 08:19 Carbon Dioxide 27 mmol/L (22-29) 09/03/24 08:19 Anion Gap 14.0 (5-19) 09/03/24 08:19 BUN 15 mg/dL (6-20) 09/03/24 08:19 Creatinine 0.6 mg/dL (0.5-0.9) 09/03/24 08:19 GFR Calculation 103.8 mL/min (90-130) 09/03/24 08:19 Glucose 91 mg/dL (65-115) 09/03/24 08:19 Calculated Osmolality 298 mOsm/kg (285-295) H 09/03/24 08:19 Calcium 9.7 mg/dL (8.5-10.5) 09/03/24 08:19 Total Bilirubin 0.4 mg/dL (0.15-1.2) 09/03/24 08:19 AST 13 U/L (0-32) 09/03/24 08:19 ALT 12 U/L (0-33) 09/03/24 08:19 Alkaline Phosphatase 89 U/L (35-105) 09/03/24 08:19 Troponin T Baseline < 6 ng/L (0-10) 09/03/24 08:19 Troponin T 120 Minute < 6.0 ng/L (0-10) 09/03/24 10:09 Delta Troponin T 0 ABS# (0-10) 09/03/24 10:09 Total Protein 6.3 g/dL (6.6-8.7) L 09/03/24 08:19 Albumin 4.3 g/dL (3.5-5.2) 09/03/24 08:19 Globulin 2.0 g/dL (1.3-4.6) 09/03/24 08:19 All radiology interpretation(s) finalized by discharge Discharge Plan Discharge Patient Disposition: Home Clinical Impression: Chest wall pain Condition: Stable Prescriptions: No Action acetaminophen 325 mg capsule 650 mg PO QID PRN (Reason: Pain) naproxen sodium [Aleve] 220 mg Tablet 440 mg PO Q12H PRN (Reason: Fever Or Pain) One-A-Day Women's 50 Plus 400 mcg-500 mg calcium-20 mcg Tablet 1 tab PO DAILY [place]roven 155 mg Capsule 1 cap PO BID Discharge Orders: Discharge ED (Routine); Ordered 09/03/24 Ordered By: Ivelisse Islas Referrals: Heidy Garza NP [Primary Care Provider] Activity Restrictions/Additional Instructions: As we discussed, your cardiac workup here was unremarkable. You may follow-up with primary care as needed for further evaluation. You may return to the emergency department at anytime for any further concerns you may have. Print Language: Telugu Coding Level of Care Code ED Internal Medicine Nurse for Pattie Feliciano
--- NOTE | 2024-09-03 09:03 | XR_ITS ---
WS: [id number] XR chest 1V portable [id number] REASON FOR EXAM: chest pain FINDINGS: The heart and the mediastinum are within normal limits. Calcified granulomatous disease bilaterally. No acute pulmonary parenchymal or pleural abnormality. No significant abnormality of the bony thorax. XR/XR chest 1V portable [id number] IMPRESSION: No acute chest abnormality.
--- NOTE | 2024-09-03 10:14 | ECG_ITS ---
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
[2024-09-03 10:37] LABS: Troponin 5 2HR < 6.0 ng/L (0-10); Troponin 5 2HR Delta 0 ABS# (0-10)
[2024-09-03 10:38] VITALS: BP 107/67; PULSE 60; RESP 18; O2SAT 99
[2024-09-03 10:55] VITALS: BP 107/67; PULSE 68; O2SAT 98
== END 2024-09-03 11:00 | disposition home or self-care (01) ==
PROVIDERS: Emergency Medicine; Emergency Provider Physician Assistant; PCP Nurse Practitioner Family
DX: R07.89 Other chest pain (principal)
CPT/HCPCS: 36415; 71045; 80053; 84484; 85025; 93005; 99285